=== PATIENT | female | born 1935 | race Caucasian/White ===

== ENCOUNTER 2016-08-14 08:22 | Day surgery (SDC) | payer MEDICARE ==
[~2016-08-14] VITALS: Ht 172.7 cm; Wt 90.7 kg
[~2016-08-14 08:22] MED LIST: ASPI-973 PO; ATEN100T PO; DULO30CA50 PO; FLUT15.88 NOSTRIL; LEVO50TA6 PO; LISI-567 PO; LORA0.5T PO; Lactated Ringer's 1,000 ML IV ONE; METF500T7 PO; OMEP20CA11 PO; OXYB5TAB PO; OXYC-466 PO; PRAV80TA2 PO; TRAZ-115 PO
[2016-08-14] MEDS ORDERED: fentaNYL-PF 50 mCg/mL 2 mL Inj ONE (08:23)
[2016-08-14] MEDS ORDERED: Propofol 10,000 mCg/mL 20 mL Inj ONE (08:23)
[2016-08-14 08:59] VITALS: BP 149/93; PULSE 93; RESP 16; O2SAT 92
--- NOTE | 2016-08-14 09:21 | PCM.HPANE ---
Patient Data Surgeon Admitting Provider: Attending Provider:Xu Figueroa MD Primary Care Physician:Amado Lott MD Other Provider:[facility] [facility] Reason for Visit Dysphagia, Phx Colon Polyps Ht/WT & BMI Height (Feet): 5 Height (Inches): 8 Weight (Kilograms): 90.72 Body Mass Index 30.00 Allergies Coded Allergies: nitrofurantoin (Verified Allergy, Mild, 06/04/16) ciprofloxacin (Verified Adverse Reaction, Severe, HALLUCINATIONS, 06/04/16 ) Past Anesthesia History Anesthesia History: Denies:: Abnormal Airway, Anesthesia Reactions, Difficult Intubation, Fam Anesthesia Reaction, Fam Malignant Hypertherm, Malignant Hyperthermia Diabetes History Hx Diabetes?: Yes Current Bedside Blood Glucose: 116 MRSA MRSA: No Medications Blood Thinner: Aspirin Last Dose Blood Thinner: Aug 13, 2016 Reported Medications Lisinopril 20 Mg Lipprg59 Mg PO DAILY 30 Days Ref 0 06/04/16 Metformin ER 500 Mg Aoceyb556 Mg PO Evening #30 05/08/16 Trazodone 50 Mg Phdqqr18 Mg PO HS Ref 0 03/28/16 Pravastatin 80 Mg Sfevgv50 Mg PO HS Ref 0 03/28/16 oxyCODONE-Acetaminophen 10-325 mg 1 Each Tablet1 Tablet PO Q4-6H PRN For Pain Ref 0 03/28/16 Oxybutynin Chloride ER 5 Mg Tab.er.245 Mg PO HS Ref 0 03/28/16 Omeprazole 20 Mg Capsule.dr20 Mg PO DAILY Ref 0 03/28/16 Lorazepam 0.5 Mg Tablet0.5 Mg PO DAILY PRN For Anxiety Ref 0 03/28/16 Lorazepam 0.5 Mg Tablet1 Mg PO HS PRN For Insomnia Ref 0 03/28/16 Levothyroxine 50 Mcg Nwzsny98 Mcg PO DAILY Ref 0 03/28/16 Fluticasone Propionate 50 Mcg/Actuation [place].susp2 Sprays NOSTRIL DAILY 03/28/16 Duloxetine 30 Mg Capsule.dr30 Mg PO DAILY Ref 0 03/28/16 Aspirin 81 Mg Thgfsj65 Mg PO DAILY Ref 0 03/28/16 Discontinued Reported Medications Atenolol 100 Mg Xlftyw084 Mg PO HS Ref 0 03/28/16 Divalproex ER 250 Mg Tab.er.67p273 Mg PO HS #90 06/04/16 Oxycodone (Roxicodone)5 Mg Tablet1 Capsule PO Q4H PRN For Pain Ref 0 03/28/16 History History of ENT Problems?: Yes HEENT History: Positive for:: Dysphagia Hearing Problem (LEFT WITH ) Sinus Problem (ALLERGIES) Denies:: Abnormal Airway Cataracts Difficult Intubation Teeth Condition: Missing Teeth Hx of Heart Problems?: Yes Cardiovascular History: Positive for:: Cardiac Surgery (pacemaker) Chest Pain Hypertension Pacemaker (2007 / Interogated w/in last month--not pacer dependent) Denies:: Congestive Heart Failure Edema Heart Murmur Irregular Heartbeat Thrombophlebitis Valvular Heart Disease Hx of Respiratory Problem?: No Respiratory History: Denies:: Tuberculosis Hx Neurologic Problems?: Yes Neurological History: Positive for:: 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 Skin History: Denies:: History Skin Disorders? Hx Musculoskeletal Problems?: Yes Musculoskeletal History: Positive for:: Back Injury Degenerative Joint Joint Replacement (bilat knee and r hip) Denies:: Musculoskeletal Trauma Hx of Psycho/Social Problems?: Yes Psycho Social History: Positive for:: Anxiety Bipolar Disorder Hx Depression Denies:: Suicide Attempt Hx Surgeries?: Yes (hysterectomy,bilat knee, r hip, r shoulder, carpal tunnel) Hx Any Other Health Problems?: Yes Other History: Positive for:: Cancer (SKIN) Hospitalization Thyroid Disease Denies:: Endocrine Disease History Blood Transfusions: Denies:: Blood Transfuse Reaction Blood Transfusions Hx Diabetes: YesBedside Blood Glucose: 116 Hx Alcohol Use: NoHx Substance Use: No Smoking Status: Former Smoker Have You Smoked inLast 12 mo: No Stop/Bang Treated for Sleep Apnea?: No Do You Have a CPAP Machine?: No S-Snoring: Do You Snore Loudly: No T-Tired: feel tired, fatigued: No O-Obsered: Observed not breath: No P-Blood Pressure: treated: Yes B- Body Mass Index > 35 kg/m2: No A- Age over 50: Yes N- Neck Large Circumference: No G- Gender Male: No ALEXSANDRA Total Score: 2 Risk Assessment Category Category 1A: Patient has history of documented sleep apnea, and HAS NOT received any narcotic, sedative or anesthesia administration during this stay. Category 1B: Patient has history of documented sleep apnea, and HAS received any narcotic , sedative or anesthesia administration during this stay Category 2: Patient has SUSPECTED Obstructive Sleep Apnea, and HAS received any narcotic , sedative or anesthesia administration during this stay. Category 3: Patient has SUSPECTED Obstructive Sleep Apnea and HAS NOT received narcotic, sedative or anesthesia administration during this stay. Category 4: Outpatient in Procedural Areas with known sleep apnea or who screen positive for High Risk via the STOP/BANG questionnaire. Exam Exam Vital Signs Vital Signs Date Time Temp Pulse Resp B/P Pulse Ox O2 Delivery O2 Flow Rate FiO2 08/14/16 08:59 93 16 149/93 92 Room Air General Appearance: Alert, Oriented X3, Cooperative, No Acute Distress HEENT/AIRWAY: MP 2, Neck Movement (FROM), Mouth Opening (sMALL MOUTH OPENING, MISSING FRONT TEETH. PATIENT HAS BRIDGE WHICH IS AT HOME) Lungs: Clear to Auscultation Heart: Exam Unremarkable (PACEMAKER WITH DEVICE SHEET IN CHART.) Meds/Labs/Diagnostics Bedside Blood Glucose: 116 Plan Impression Patient chart reviewed, patient interviewed and anesthestic plan with risks, benefits, and alternatives discussed, and informed consent obtained. ASA Physical Status: ASA2 Mod Systemic Disease Anesthetic Plan: GA Bene/Risks/Altern/Consents: Yes HP Complete Prior to Induction: Yes Kiran Mirza MD Aug 14, 2016 09:21
[2016-08-14] MEDS ORDERED: Lactated Ringer's 1,000 ML IV SCH ×2 (10:17→11:06)
[2016-08-14] MEDS ORDERED: Ondansetron 2 mg/mL 2 mL Inj IVPUSH PRN (10:20)
[2016-08-14] MEDS ORDERED: MetoCLOpramide 5 mg/mL 2 mL Inj IVPUSH PRN (10:20)
[2016-08-14 11:06] VITALS: BP 148/74; PULSE 91; RESP 16; O2SAT 97
--- NOTE | 2016-08-14 11:06 | PCM.ANEP1 ---
Post Anesthesia Phase 1 PACU Phase 1 Assessment Vital Signs Vital Signs Date Time Temp Pulse Resp B/P Pulse Ox O2 Delivery O2 Flow Rate FiO2 08/14/16 08:59 93 16 149/93 92 Room Air Anesthetic Administered: GA Level of Alertness: Awake, talking ESPINOSA's with Equal Strength: Yes Pain: No Nausea or Vomiting: No Oxygen Delivery: Room Air Lungs: Normal Air Movement Kiran Mirza MD Aug 14, 2016 11:06
--- NOTE | 2016-08-14 11:10 | PCM.ENDCOL ---
Colonoscopy Date of Service: Aug 14, 2016 Physician Xu Figueroa MD Indication for Procedure Screening colon cancer personal history of polyp Post Procedure Dx & Findings: Polyps hemorrhoids diverticuli Procedure Colonoscopy Prep adequate 10 minutes PROCEDURE IN DETAIL: After unremarkable rectal examination Olympus video colonoscope was inserted patient's anal canal dispensed the cecum. Landmarks are identified including ileocecal valve and appendiceal orifice. Scope was withdrawn systematically. The mucosa of the cecum, ascending, transverse, descending, sigmoid, rectal mucosa lined with whitish, pink, smooth, glistening, normal-appearing mucosa, normal fine branching, underlying vascularity, normal haustra. The patient tolerated procedure and was transported to observation area. In the transverse colon there was a 3 mm polyp which was resected completely using cold snare. In the sigmoid colon and to some extent in the right colon, there were small to medium diverticuli few in numbers. In the rectum retroflexion was done which showed hemorrhoids and anal canal was inspected carefully and the way out and mild hemorrhoids noted. Impression Polyp status post complete removal Hemorrhoids Diverticuli Recommendation Repeat colonoscopy 5 years. Addendum We attempted an upper endoscopy. During the upper endoscopy, patient's upper esophageal sphincter was not relaxing. In at one point, the maneuver her tongue while I was right in front of the upper esophageal sphincter. Because the upper esophageal sphincter was not relaxing, we withdrew the scope. We held off giving her sedation. She woke up slightly. She was able to follow commands. We then reinserted the scope and again we were right in front of the upper esophageal sphincter. Then she attempted to swallow as we asked her to. Then she moves her tongue while she was attempting to swallow. The endoscope fell into the trachea less than a second and withdrew the scope. Then EGD was aborted. Presedation Assessment Risks and Benefits Informed consent was obtained from the patient after all risks and benefits including but not limited to drug reaction, infection, pain, bleeding, perforation, as well as alternatives were discussed. Patient monitoring Continuous pulse oximetry, cardiac monitoring, blood pressure monitoring, IV access, and oxygen at 2L per nasal cannula. Complications There were no periprocedural complications identified. Post Procedure Plan Post Procedure Recommendations 1. Restrict activities today. 2. Resume normal activities in the morning. 3. Resume medications. 4. Patient informed of normal post procedure side effects as bloating, drowsiness, blood streaking in the stool. 5. average risk CRCS. If colon polyps come back as: -Hyperplastic- can repeat colonoscopy in 10 years -Tubular adenoma- repeat colonoscopy in 5 years -Tubulovillous/villous adenoma- repeat colonoscopy in 3 years -If any dysplasia- return to clinic as soon as possible 6. Please don't hesitate to call me with any questions. Xu Figueroa MD Aug 14, 2016 11:10
[2016-08-14 11:19] VITALS: BP 151/92; PULSE 93; RESP 16; O2SAT 96
--- NOTE | 2016-08-15 11:47 | PATH ---
SURGICAL PATHOLOGY Attending Physician:Xu Figueroa M.D. CASE STATUS: Signed Out PATIENT NAME: SATHISH CASTILLO I. PID: [id number] : 1935 DATE COLLECTED:08/14/2016 17:25 SPECIMEN: Colon, Biopsy CLINICAL HISTORY: A: TRANSVERSE COLON POLYP X1 FINAL DIAGNOSIS: Transverse Colon Polyp: Tubular adenoma. ICD10: D12.3 GROSS DESCRIPTION: The specimen is received in one formalin filled container labeled with the patient's name, sublabeled "transverse colon polyp" and consists of a 0.4 x 0.3 x 0.3 CM portion of tissue which is entirely submitted in one cassette. 08/14/2016 [facility] ICD-9 CODES: CPT CODES: 1: 51642 Electronically Signed Out Glen Melgar MD [facility] Pathology [facility] [address], [place] [address] Technical component performed at [facility], [address], [place], [address]
== END 2016-08-14 23:59 | disposition home or self-care (01) ==
LOC: END 08:22
PROVIDERS: ATTEND Internal Medicine
DX: Z12.11 Encounter for screening for malignant neoplasm of colon (principal); D12.3 Benign neoplasm of transverse colon; K57.30 Diverticulosis of large intestine without perforation or abscess without bleeding; K64.8 Other hemorrhoids; R13.10 Dysphagia, unspecified; Z86.010 Personal history of colon polyps; Z79.82 Long term (current) use of aspirin; Z79.899 Other long term (current) drug therapy
CPT/HCPCS: 43235; 45385; 88305; J2250; J7120

== ENCOUNTER 2016-10-02 17:11 | Emergency (ER) | payer MEDICARE ==
[~2016-10-02] VITALS: Ht 172.7 cm; Wt 88.6 kg
[~2016-10-02 17:11] MED LIST changes: -ATEN100T PO; -Lactated Ringer's 1,000 ML IV ONE
[2016-10-02 17:44] VITALS: BP 152/75; PULSE 65; RESP 16; O2SAT 95
--- NOTE | 2016-10-02 19:19 | ED.REPORT ---
HPI-Trauma Minor / Fall Date of Service Oct 02, 2016 ED Provider: Julia Cotsa MD Patient is a 81 year old female with a history of Parkinson's Disease, bipolar disorder, diabetes mellitus, hypertension, and cardiac pacemaker who presents to the ED via with blunt head trauma after a ground level fall this evening. The patient states that she fell backwards in her kitchen, landing on her wood floor. The patient has a laceration to the back of her head. Patient believes that she simply lost her balance. Patient reports falling in the past and states that she is working on improving her balance. She did not lose consciousness. She takes 81mg aspirin daily, but is not on any other blood thinning medications. Patient denies chest pain, shortness of breath, numbness/ weakness in her extremities, or sustaining any other injuries. Nursing Notes Stated Complaint: GLF Chief Complaint: Head, Face, Neck Trauma Nursing Notes Reviewed: Yes Allergies: Coded Allergies: nitrofurantoin (Verified Allergy, Mild, 06/04/16) ciprofloxacin (Verified Adverse Reaction, Severe, HALLUCINATIONS, 06/04/16 ) Scheduled Aspirin (Aspirin) 81 Mg Tablet 81 MG PO DAILY Duloxetine (Duloxetine) 30 Mg Capsule.dr 30 MG PO DAILY Fluticasone Propionate (Fluticasone Propionate) 50 Mcg/Actuation [place].susp 2 SPRAYS NOSTRIL DAILY Levothyroxine (Levothyroxine) 50 Mcg Tablet 50 MCG PO DAILY Lisinopril (Lisinopril) 20 Mg Tablet 20 MG PO DAILY Metformin ER (Metformin ER) 500 Mg Tablet 500 MG PO Evening Omeprazole (Omeprazole) 20 Mg Capsule.dr 20 MG PO DAILY Oxybutynin Chloride ER (Oxybutynin Chloride ER) 5 Mg Tab.er.24 5 MG PO HS Pravastatin (Pravastatin) 80 Mg Tablet 80 MG PO HS Trazodone (Trazodone) 50 Mg Tablet 50 MG PO HS Scheduled PRN Lorazepam (Lorazepam) 0.5 Mg Tablet 1 MG PO HS PRN PRN For Insomnia Lorazepam (Lorazepam) 0.5 Mg Tablet 0.5 MG PO DAILY PRN PRN For Anxiety oxyCODONE-Acetaminophen 10-325 mg (oxyCODONE-Acetaminophen 10-325 mg) 1 Each Tablet 1 TABLET PO Q4-6H PRN PRN For Pain General Time Seen by MD: 19:17 Chief Complaint Fall, Head injury Hx Obtained From: Patient Arrived By: Ambulance Onset Occurred: Just prior to arrival Symptom Duration: Since onset Location: Head Quality: Painful Severity: Current: Mild Severity: Maximum: Mild Recent Healthcare: No recent doctor visit, No recent hospitalization Similar Sx Previous: Yes Past Medical History Past Medical History Notes: PCP: Dr Talavera Past Medical History Parkinson's Disease Chronic Pain HTN GERD Depression Anxiety DJD Bipolar Reports: Diabetes mellitus, Hyperlipidemia Past Surgical History Right shoulder replacement 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 Hematologic: Reports Bleeding, Reports Bruising Physical Exam Initial Vital Signs Vital Signs (First) Date Time Temp Pulse Resp B/P Pulse Ox O2 Delivery O2 Flow Rate FiO2 10/02/16 17:44 36.8 65 16 152/75 95 Room Air Initial VS: Reviewed Skin: Warm, Dry, No cyanosis Psychiatric: Mood/affect normal, Behavior normal, Normal thought content General/Constitutional: Awake, Alert, No acute distress Neck: Supple, No midline vertebral tend Head / Eyes: Normocephalic, PERRL 5cm laceration to the occiput ENT: Airway patent, Mucous membranes moist Respiratory / Chest: Breath sounds NL, Breath sounds = bilat, No respiratory distress, No rales, No rhonchi, No wheezing Cardiovascular: Heart rate NL, Regular rhythm, Heart sounds NL, No gallop, No murmurs Abdomen: Soft, Non-tender Upper Extremity / MS: No deformity, Neurologic intact, Vascular intact Lower Extremity / Pelvis / MS: No deformity, Neurologic intact, Vascular intact Neurologic: Oriented X3, Speech NL, No motor deficits, No sensory deficits, CN II - XII intact normal finger-nose normal heel-williamson no pronator drift Interpretation & Diagnostics Lab Results Interpretation Result Diagram: 10/02/16203510/02/162035 Test 10/02/16 20:03 10/02/16 20:36 Urine Color Yellow (YELLOW) Urine Appearance Hazy (CLEAR,HAZY) Urine pH 6.0 (5.0-8.0) Urine Specific [place] 1.010 (1.003-1.035) Urine Protein Negativemg/dL (NEG,TRACE) Urine Glucose (UA) Negativemg/dL (NEGATIVE) Urine Ketones Negativemg/dL (NEGATIVE) Urine Occult Blood Trace (NEGATIVE) Urine Nitrite Negative (NEGATIVE) Urine Bilirubin Negative (NEGATIVE) Urine Urobilinogen Normalmg/dL (NORMAL) Urine Leukocyte Esterase Negative (NEGATIVE) Urine RBC 0-2/hpf (0-2) Urine WBC 0-5/hpf (0-5) Urine Epithelial Cells Few/hpf (NONE-MOD) Urine Crystals None seen (NONE SEEN) Urine Bacteria None/hpf (NONE-FEW) Urine Hyaline Casts None/lpf (NONE) Urine Granular Casts None seen (NONE SEEN) Urine Waxy Casts None seen (NONE SEEN) Urine Red Blood Cell Casts None seen (NONE SEEN) Urine White Blood Cell Casts None seen (NONE SEEN) Urine Mucus None seen (None Seen) Urine Trichomonas None seen (NONE SEEN) Urine Yeast None (NONE SEEN) Urinalysis Comment None White Blood Count 4.2th/mm3 (3.8-10.1) Red Blood Count 4.09mil/mm3 (3.90-5.20) Hemoglobin 12.3g/dL (12.0-15.6) Hematocrit 38.6% (35.0-46.0) Mean Corpuscular Volume 94.4fL (81-100) Mean Corpuscular Hemoglobin 30.1pg (27.0-35.0) Mean Corpuscular Hemoglobin Concent 31.9% (32.0-37.0) Red Cell Distribution Width 12.9% (12.3-15.4) Platelet Count 92bil/L (150-400) Neutrophils (%) (Auto) 54.7% (40-74) Lymphocytes (%) (Auto) 28.7% (14-46) Monocytes (%) (Auto) 11.6% (4-12) Eosinophils (%) (Auto) 4.6% (0-5) Basophils (%) (Auto) 0.2% (0-3) Prothrombin Time 10.0sec (8.1-12.5) Prothromb Time International Ratio 0.94ratio Activated Partial Thromboplast Time 23.6sec (22.8-33.0) Sodium Level 139mEq/L (134-144) Potassium Level 5.6mEq/L (3.5-5.2) Chloride Level 102mEq/L (97-108) Carbon Dioxide Level 24mmol/L (18-29) Blood Urea Nitrogen 41mg/dL (8-27) Creatinine 1.35mg/dL (0.57-1.00) Estimat Glomerular Filtration Rate 54mL/min (>59) Glucose Level 115mg/dL (60-99) Calcium Level 9.5mg/dL (8.5-10.1) Total Bilirubin 0.2mg/dL (0.0-1.2) Aspartate Amino Transf (AST/SGOT) 15U/L (0-50) Alanine Aminotransferase (ALT/SGPT) 5U/L (0-32) Alkaline Phosphatase 77U/L (25-165) Total Protein 6.2g/dL (6.4-8.4) Albumin 3.8g/dL (3.4-5.0) Hold Ceja Top Tube Received (Received) CT Head Interpretation IMPRESSION: Acute abnormality is not identified. No evidence for blood. Question of loss of head-white matter interface involving the left occipital cortex posteromedially. This is not a definite abnormality. Clinical correlation for any visual abnormalities suggested. Dictated by: Skinny Claudio M.D. on 10/02/2016 at 19:59 Approved by: Skinny Claudio M.D. on 10/02/2016 at 20:07 Study: Head CT no contrast Interpretation / Wet Read by: Interpret - Radiologist Procedures Laceration Management Time: 21:10 Procedure Performed by: ED physician Consent / Setup / Site Prep: Consent from patient, Time-out performed, Hand hygiene observed, Stand sterile technique Location of Wound: occiput Wound Length: 5 cm Local Anesthesia: Lidocaine w epi 1%, Other (10cc) Debridement: None Irrigation: Copious Foreign Body Explore / Removal: Explored for foreign body Repair Skin: [place] # Sutures - Skin: 8 Closure Layers: 1 Post-Procedure / Complications: Antibiotic oint applied, Dressing applied, No complications, Condition improved, Tolerated procedure well, Patient stable Re-Eval/Medical Decision Med Decision/Clinical Course 81-year-old female here after mechanical fall. Differential diagnosis includes but is not limited to subarachnoid versus subdural hemorrhage versus laceration versus contusion. CT head does not show any acute abnormality, however, does show some chronic abnormalities. Patient had laceration which was repaired in the emergency department with tatyana. She tolerated the procedure well. Labs are at patient's baseline with mild renal insufficiency and hyperkalemia. At this time, I do not feel she requires treatment for this. She is steady on her feet and is aware and amenable to discharge. She was advised to have her tatyana removed in approximately 10 days. She was given very strict return precautions. Source of Hx: Old records Re-Evaluation/Progress : Time of Eval: 21:15 Patient Status: Condition improved Re-Evaluation/Progress Note: Laceration repaired. Patient understands and agrees with the plan to be discharged home. Discharge instructions and follow-up discussed. All questions were addressed. Return to the ED warnings given. Counseled Regarding: Diagnosis, Lab results, Need for follow-up, When/why to return to ED Discharge & Departure Impression: Primary Impression: Scalp laceration Encounter type: initial encounter Qualified Code: S01.01XA - Laceration without foreign body of scalp, initial encounter Additional Impressions: Blunt head injury Encounter type: initial encounter Qualified Code: S09.8XXA - Other specified injuries of head, initial encounter Fall from ground level Disposition: Home Discharge Condition All VS Reviewed: Yes Condition: Stable Patient Instructions: Laceration (ED), Minor Head Injury (ED) Additional Instructions: The CT scan of your head was normal. The laceration on the back of your head was repaired with tatyana. The tatyana need to be removed in 10 days. You can return to the emergency department for this or see your regular doctor. Do not shower or wash your hair in the next 24 hours. Follow-up with your doctor in the next 1-2 days. Return to the Emergency Department if you develop a severe headache, confusion, persistent vomiting, shortness of breath, chest pain, or any other concerning symptoms. Your blood pressure was elevated in the emergency department today. You should follow-up with your primary care physician regarding your high blood pressure, as your may need to make changes to your blood pressure medications. Referrals: Amado Lott MD (PCP) Scribe Attestation Portions of this note were transcribed by Jenny Garcia. I, Dr. Costa personally performed the history, physical exam and medical decision-making; I reviewed and confirmed the accuracy of the information in the transcribed note. Signed by: Katharine Gonsalez, 10/02/2016 2141 copies to: Amado Lott MD, Rebecca A MD Oct 02, 2016 19:19 Jenny Garcia Oct 02, 2016 19:29
--- NOTE | 2016-10-02 20:08 | DRSVH ---
PROCEDURE: CT BRAIN WITHOUT CONTRAST ([id number]) INDICATIONS: fall TECHNIQUE: Noncontrast 4.5 mm thick angled axial sections acquired from the foramen magnum to the vertex, with c oronal reformats. COMPARISON: [facility], CT, BRAIN W/O CONTRAST, 04/05/2010, 12:00. FINDINGS: Image quality: Excellent. CSF spaces: Basal cisterns are patent. No extra-axial fluid collections. The ventricles are symmet roland in size and shape. Brain: No intracranial bleeds or masses. There is cerebral volume loss for age, with resultant vent ricular and sulcal prominence. There are periventricular and deep white matter chronic small vessel ischemic changes. There is intracranial internal carotid artery atherosclerosis. There is some loss of head-white matter interface suggested but possibly artifact if any left occipital region posterome dially series 2 images 15, 14, and 13. Skull and face: Calvarium and visualized facial bones appear intact, without suspicious lesions. Sinuses: Visualized sinuses and mastoids are clear. IMPRESSION: Acute abnormality is not identified. No evidence for blood. Question of loss of head-white matter interface involving the left occipital cortex posteromedially. This is not a definite abnormality. Clinical correlation for any visual abnormalities suggested. Dictated by: Skinny Claudio M.D. on 10/02/2016 at 19:59 Approved by: Skinny Claudio M.D. on 10/02/2016 at 20:07
[2016-10-02 20:10] LABS: APPEARANCE,URINE HAZY (CLEAR,HAZY); COLOR,URINE YELLOW (YELLOW); OCCULT BLOOD,URINE TRACE (NEGATIVE); UROBILINOGEN,URINE NORMAL (NORMAL)
[2016-10-02 20:31] VITALS: BP 150/72; PULSE 64; O2SAT 99
[2016-10-02] MEDS ORDERED: Lidocaine 1%-Epi 1:100,000 50 mL Inj SUBQ ONE (20:40)
[2016-10-02] MEDS ORDERED: Lidocaine 1%-Epi 1:100,000 20 mL Inj ONE (20:53)
[2016-10-02 20:55] LABS: BASOPHILS % (AUTO) 0.2 % (0-3); Platelet Count 92 bil/L (150-400)
[2016-10-02 20:59] LABS: EOSINOPHILS % (AUTO) 4.6 % (0-5); MONOCYTES % (AUTO) 11.6 % (4-12); Mean Corpuscular Hemoglobin 30.1 pg (27.0-35.0); Mean Corpuscular Volume 94.4 fL (81-100); NEUTROPHILS % (AUTO) 54.7 % (40-74)
[2016-10-02 21:20] LABS: INR 0.94 ratio
[2016-10-02] MEDS ORDERED: Lidocaine 1%-Epi 1:100,000 20 mL Inj SUBQ ONE (21:25)
[2016-10-02 22:14] VITALS: BP 150/79; PULSE 71; RESP 16; O2SAT 98
== END 2016-10-02 22:17 | disposition home or self-care (01) ==
LOC: EDBD 17:11 → SED 17:11
DX: S01.01XA Laceration without foreign body of scalp, initial encounter (principal); W18.39XA Other fall on same level, initial encounter; Y93.89 Activity, other specified; Y92.000 Kitchen of unspecified non-institutional (private) residence as the place of occurrence of the external cause; Y99.8 Other external cause status; I10 Essential (primary) hypertension; K21.9 Gastro-esophageal reflux disease without esophagitis; F31.9 Bipolar disorder, unspecified; G20 Parkinson's disease; Z95.0 Presence of cardiac pacemaker; E11.9 Type 2 diabetes mellitus without complications; Z79.82 Long term (current) use of aspirin; E78.5 Hyperlipidemia, unspecified; Z79.84 Long term (current) use of oral hypoglycemic drugs; Z88.1 Allergy status to other antibiotic agents